=== PATIENT | male | born 1960 | race Caucasian/White ===

== ENCOUNTER → 2016-07-02 | Emergency (ER) | payer OTHER ==
[~2016-07-02] VITALS: Ht 177.8 cm; Wt 94.0 kg
[~2016-07-02] MED LIST: MELA5TAB5 PO
[2016-07-02 15:39] VITALS: BP 173/98
--- NOTE | 2016-07-02 16:02 | NUR ---
DR SCHULER TALKS WITH DR CHINO RE PT. CL
--- NOTE | 2016-07-02 16:14 | NUR ---
PT TELLS THAT HE HAD INSERTED 2 SMALL CYLINDRICAL LOTION BOTTLES INTO HIS RECTUM LAST NIGHT, ONE CAME OUT BUT THE OTHER DID NOT. HE HAS NOT BEEN ABLE TO EXPEL THE SECOND BOTTLE.
--- NOTE | 2016-07-02 19:15 | Diagnostic Imaging Report ---
INDICATION: Rectal foreign body KUB obtained at 4:31 p.m. Abdominal bowel gas pattern is unremarkable. No radiopaque foreign body is visualized. IMPRESSION: Abdominal bowel gas pattern is unremarkable. There is no radiopaque foreign body. Dictated by: Dictated on workstation # [id number]
== END | disposition home or self-care (01) ==
LOC: ED 15:49
DX: T18.5XXA Foreign body in anus and rectum, initial encounter (principal); X58.XXXA Exposure to other specified factors, initial encounter; F17.210 Nicotine dependence, cigarettes, uncomplicated
CPT/HCPCS: 74000; 99283